=== PATIENT | male | born 1950 | race Caucasian/White ===

== ENCOUNTER 2024-06-14 08:28 | Inpatient (IN) ==
[2024-06-14 08:55] LABS: BASOPHILS # (AUTO) 0.1 10^3/uL (0.0-0.1); BASOPHILS % (AUTO) 0.3 %; EOSINOPHILS % (AUTO) 0.1 %; HCT - HEMATOCRIT 44.7 % (42.0-52.0); LYMPHOCYTES # (AUTO) 1.1 10^3/uL (1.5-3.5); LYMPHOCYTES % (AUTO) 6.9 %; MEAN CORPUSCULAR HEMOGLOBIN 30.9 pg (27.0-31.0); MEAN CORPUSCULAR HGB CONC 33.6 g/dL (32.0-36.0); MEAN CORPUSCULAR VOLUME 92.2 fL (80.0-94.0); MEAN PLATELET VOLUME 10.7 fL (7.4-11.4); MONOCYTES % (AUTO) 6.5 %; NEUTROPHILS # (AUTO) 13.6 10^3/uL (1.5-6.6); NEUTROPHILS % (AUTO) 85.7 %; PLT - PLATELET COUNT 244 10^3/uL (130-450); RED BLOOD COUNT 4.85 10^6/uL (4.70-6.10); RED CELL DISTRIBUTION WIDTH 13.4 % (12.0-15.0); WHITE BLOOD COUNT 15.8 x10^3/uL (4.8-10.8)
[2024-06-14] MEDS: SODIUM CHLORIDE 0.9% 1,000 ML IV STA (09:03)
--- NOTE | 2024-06-14 09:06 | ED Physician Documentation ---
PD HPI ABD PAIN Stated complaint Stated Complaint: L RUQ PX Chief complaint Chief Complaint: Abd Pain History obtained from History obtained from: Patient and EMS Additional information Additional information: The patient comes to the emergency department via EMS for chief complaint of upper abdominal pain, vomiting all night, and no colostomy output. The patient states that he had a colectomy done in February after a perforated diverticulum and that he has had bowel obstruction previously. He states the pain is doing a little better, but he still feels nauseated. No fevers or chills. He states he has not had any stool or flatus into his bag. 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 Meds/Allgy Allergies Allergies Allergy/AdvReac Type Severity Reaction Status Date / Time No Known Drug Allergies Allergy Verified 06/14/24 08:38 [facility] Social History Social History Relationship: Do you feel safe in your home environment?: Yes Suffered physical, verbal, emotional, or financial abuse?: No Exam Constitutional normal general appearance and no apparent distress HENMT normocephalic, head/scalp atraumatic, external nose normal and oral mucous membranes normal Eyes EOMs intact bilaterally Neck/C-Spine visual inspection normal and supple Respiratory breath sounds equal bilaterally, normal respiratory effort and clear to auscultation bilaterally Cardiovascular normal heart rate noted, regular rhythm noted and no edema Gastrointestinal abdomen normal to inspection, abdomen soft to palpation and nondistended Mild diffuse tenderness, no rebound or guarding. Colostomy bag empty. Genitourinary no CVA tenderness Extremities normal to inspection Neurology Alert, grossly intact Psychiatry mental status grossly normal Skin skin color normal Results Vitals Vitals: Vital Signs - 24 hr 06/14/24 08:34 Temperature 36.2 C L Temperature Source Temporal Artery Scan Pulse Rate 95 Respiratory Rate 20 Blood Pressure 100/72 O2 Saturation 96 O2 Source Room air Pain Intensity 5 Oxygen O2 Source Room air Labs Labs: Laboratory Tests 06/14/24 08:45 WBC 15.8 H RBC 4.85 Hgb 15.0 Hct 44.7 MCV 92.2 MCH 30.9 MCHC 33.6 RDW 13.4 Plt Count 244 MPV 10.7 Neut # (Auto) 13.6 H Lymph # (Auto) 1.1 L Hancock # (Auto) 1.0 Eos # (Auto) 0.0 Baso # (Auto) 0.1 Absolute Nucleated RBC 0.00 Nucleated RBC % 0.0 Sodium 138 Potassium 4.1 Chloride 102 Carbon Dioxide 28 Anion Gap 8.0 BUN 20 Creatinine 0.9 Estimated GFR (MDRD) 82 L Glucose 147 H Calcium 9.9 Total Bilirubin 0.8 AST 20 ALT 13 Alkaline Phosphatase 70 Total Protein 7.4 Albumin 4.3 Globulin 3.1 Albumin/Globulin Ratio 1.4 Lipase 16 PD Medical Decision Making ED course Complexity details: reviewed old records, reviewed results, re-evaluated patient, considered differential and d/w patient ED course: Patient was worked's and ultimately CT scan of the abdomen and pelvis. He declined analgesia in the emergency department was given IV fluids and Zofran. The patient's laboratory studies revealed a white count of 15.8. Glucose was moderately elevated at 147. The remainder of blood work was unremarkable. His CT scan showed herniation of a loop of small bowel into the abdominal wall defect adjacent to the colostomy and a resultant small bowel obstruction. I discussed the findings with the patient and that he has quite a bit of gastric contents visible on CT. He would most likely find relief with gastric decompression. I discussed the case with Dr. Edmond of surgery who his come to evaluate the patient. She for now is recommending decompression with NG tube and conservative management initially to see if the obstruction resolves on its own. The patient has a history of A-fib and hypertension, and will be admitted to medicine. I have discussed the case with Dr. De La Vega and he has accepted the patient for admission. Patient is agreeable to the plan. Discharge Plan Discharge Patient Disposition: [facility] DC/Xfer Condition: Serious Clinical Impression: Small bowel obstruction, Colostomy present Print Language: Sami
[2024-06-14 09:07] LABS: ALBUMIN 4.3 g/dL (3.2-5.5); ALBUMIN/GLOBULIN RATIO 1.4 (1.0-2.2); BILIRUBIN,TOTAL 0.8 mg/dL (0.2-1.0); CALCIUM 9.9 mg/dL (8.5-10.3); CREATININE 0.9 mg/dL (0.6-1.3); POTASSIUM 4.1 mmol/L (3.5-4.5); TOTAL PROTEIN 7.4 g/dL (6.4-8.9)
[2024-06-14] MEDS ORDERED: iohexoL-300 100 ML VIAL ONE (09:10)
[2024-06-14] MEDS: ONDANSETRON 4 MG/2 ML VIAL IVP STA (09:20)
[2024-06-14] MEDS: iohexoL-300 100 ML VIAL IVP ONE (09:45)
--- NOTE | 2024-06-14 09:54 | CT Report ---
PROCEDURE: CT Abdomen/Pelvis W INDICATIONS: vomiting, abd pn, no colostomy output CONTRAST: 100ml omni 300 TECHNIQUE: After the administration of intravenous contrast, a CT scan of the abdomen and pelvis was performed. Images were recorded and evaluated at appropriate window settings. Reformats: coronal and sagittal. F or radiation dose reduction, the following was used: automated exposure control, adjustment of mA and /or kV according to patient size. COMPARISON: None. FINDINGS: Image quality: Diagnostic. Lower chest: Unremarkable. Liver: No solid mass. Gallbladder: No radiopaque stones or wall thickening. Biliary tree: No intrahepatic or extrahepatic dilation, accounting for age. Spleen: No splenomegaly. Pancreas: No pancreatic ductal dilation. Adrenals: No adrenal nodule. Kidneys and ureters: No hydronephrosis. No renal cystic lesion which requires follow up. No solid mas s. Stomach, bowel and peritoneum: There is remote sigmoid colectomy with left lower quadrant colostomy. There is a herniated loop of small bowel within the abdominal wall defect which results in a small jose wel obstruction. There is a degree of inflammatory change in the subjacent fat within the tissues kisha rounding the herniated loop. Lymph nodes: No central or retroperitoneal adenopathy. Vessels: No infrarenal aortic aneurysm. Patent portal vein. PELVIS Reproductive organs: Unremarkable. Bladder: No abnormal wall thickening, accounting for underdistention. Pelvic lymph nodes: No pelvic adenopathy by size criteria. Bones: No aggressive osseous abnormality. Other: Left inguinal hernia containing nonobstructed small bowel. There is minimal fluid within the h ernia sac.. IMPRESSION: 1. A herniated small bowel loop within the left lower quadrant colostomy results in small bowel obstr uction. 2. There is also a left inguinal hernia which contains nonobstructed small bowel. There is a small am ount of fluid present within the hernia sac. Comment: The small bowel obstruction appears to be related to the herniated loop within the colostomy abdominal wall defect, and not at the level of the left inguinal hernia. However, evaluation of both sites of herniation is suggested. Reviewed by: Jarod Handy MD on 06/14/2024 9:53 AM PST Approved by: Jarod Handy MD on 06/14/2024 9:53 AM PST Station ID: [id number]
[2024-06-14] MEDS: PROMETHAZINE INJ 25 MG in SODIUM CHLORIDE 0.9% 50 ML IV STA (10:52)
--- NOTE | 2024-06-14 11:12 | CONSULTATION NOTE ---
Referring Provider Name of Referring Provider:: ED (Teto) Consult Date: 06/14/24 Chief Complaint Chief Complaint Chief Complaint: "I've been better. I think I have an obstruction." History of Present Illness Admitted From Admitted From:: ED, brought in by EMS History Obtained From Records Reviewed: yes (limited records available) History obtained from: patient, ED provider, chart Exam Limitations: none History of Present Illness HPI Comment/Other: This is a 74-year-old gentleman who presents with a 16-hour history of acute onset diffuse abdominal discomfort associated with nausea and 12 episodes of emesis. He describes his emesis as bilious and nonbloody. He has not been able to tolerate any p.o. He has noted significant decrease in his ostomy output since onset of symptoms. He has had a prior bowel obstruction a year and a half ago. He also had perforated diverticulitis last February, and for this had an exploratory laparotomy and Tejada's procedure. His last colonoscopy was in the spring 2023 and he does have a history of numerous colon polyps. Also of note, the patient has chronic atrial fibrillation for which she has had several prior ablations and is followed by Dr. Sen of cardiology at [facility] in [place]. He is currently on metoprolol and aspirin. He is not on any other blood thinners. At the time of my visit, the patient continues to be quite nauseated and feels that his pain is somewhat improved. PFSH Active Problems All Active Problems (Updated 06/14/24 @ 11:17 by Naa Edmond MD) Leukocytosis (Acute) Small bowel obstruction (Acute) Atrial fibrillation with controlled ventricular response (Chronic) Medical History Medical History (Updated 06/14/24 @ 11:17 by Naa Edmond MD) Hypertension History of diverticulitis History of small bowel obstruction Surgical History Surgical History (Updated 06/14/24 @ 11:30 by Naa Edmond MD) History of colonoscopy with polypectomy most recent spring 2023, patient reports 40 polyps History of appendectomy Tibia fracture History of cardiac ablation for atrial fibrillation History of colostomy 02/2024 For perforated diverticulitis Social History Social History (Updated 06/14/24 @ 11:17 by Naa Edmond MD) Living arrangement: At home Living Condition: With spouse/s.o. Relationship: Level: Independent Do you feel safe in your home environment?: Yes Suffered physical, verbal, emotional, or financial abuse?: No Occupation: orthopedic surgeon Retired: Yes Meds/Allgy Allergies Allergies Allergy/AdvReac Type Severity Reaction Status Date / Time No Known Drug Allergies Allergy Verified 06/14/24 08:38 Results Lab Results Lab results reviewed: Yes 06/14/24 08:45 06/14/24 08:45 Other Lab Results: Lab Results x24hrs 06/14/24 Range/Units 08:45 WBC 15.8 H (4.8-10.8) x10^3/uL RBC 4.85 (4.70-6.10) 10^6/uL Hgb 15.0 (14.0-18.0) g/dL Hct 44.7 (42.0-52.0) % MCV 92.2 (80.0-94.0) fL MCH 30.9 (27.0-31.0) pg MCHC 33.6 (32.0-36.0) g/dL RDW 13.4 (12.0-15.0) % Plt Count 244 (130-450) 10^3/uL MPV 10.7 (7.4-11.4) fL Neut # (Auto) 13.6 H (1.5-6.6) 10^3/uL Lymph # (Auto) 1.1 L (1.5-3.5) 10^3/uL Shelby # (Auto) 1.0 (0.0-1.0) 10^3/uL Eos # (Auto) 0.0 (0.0-0.7) 10^3/uL Baso # (Auto) 0.1 (0.0-0.1) 10^3/uL Absolute Nucleated RBC 0.00 x10^3/uL Nucleated RBC % 0.0 /100WBC Sodium 138 (135-145) mmol/L Potassium 4.1 (3.5-4.5) mmol/L Chloride 102 (101-111) mmol/L Carbon Dioxide 28 (21-32) mmol/L Anion Gap 8.0 (6-13) BUN 20 (6-20) mg/dL Creatinine 0.9 (0.6-1.3) mg/dL Estimated GFR (MDRD) 82 L (>89) Glucose 147 H (74-104) mg/dL Calcium 9.9 (8.5-10.3) mg/dL Total Bilirubin 0.8 (0.2-1.0) mg/dL AST 20 (10-42) IU/L ALT 13 (10-60) IU/L Alkaline Phosphatase 70 (42-121) IU/L Total Protein 7.4 (6.4-8.9) g/dL Albumin 4.3 (3.2-5.5) g/dL Globulin 3.1 (2.1-4.2) g/dL Albumin/Globulin Ratio 1.4 (1.0-2.2) Lipase 16 (11-82) U/L Diagnostic Imaging Results Diagnostic Imaging Results: positive Final report reviewed Diagnostic Imaging Results Comments: I personally interpreted the images and reviewed the report from the CT scan done today. Moderate distension of the stomach with fluid and air, moderately dilated proximal small bowel. CT report states there is a loop of small bowel in the ostomy but I do not appreciate this on my review of the images. I do see a small seroma in the stoma, otherwise no significant free fluid. No free air. Conclusion and Plan Consultation Note Consultation Note: 74 y/o M with: 1. small bowel obstruction - adhesions vs parastomal hernia (I do not appreciate a hernia on exam or on the CT) - I discussed these findings with the patient and we agreed to trial conservative management with an NG tube today/tonight. If his ostomy output increases, we will trial clamping the tube and PO, if not, plan for small bowel follow through with gastrograffin tomorrow. - He has no peritoneal signs, no need for emergent surgical intervention at this time. - If the patient has a persistent obstruction and we are more seriously considering surgery, the patient and I agree that involving a colorectal surgeon at that time would be mcacnn to see if they would entertain colostomy takedown, though he is less than six months from his initial surgery. - IV pain, nausea meds, and IVF ordered. 2. leukocytosis - likely stress response - no fevers - no need for antibiotics at this time 3. atrial fibrillation, htn - as per primary team - recommend changing metoprolol to IV while patient is NPO Thank you for consulting me in the care of this patient! Surgery will continue to follow slowly. Review of Systems Status of ROS: 10 or more systems reviewed and unremarkable except as noted in history and below Exam Exam GEN: No acute distress, appears stated age, alert and oriented HEENT: NCAT, dry mucous membranes, EOMI NEURO: CN II-XII grossly intact, no obvious focal deficits CV: irregularly irregular rhythm, mildly tachycardic (90s-100s) PULM: non labored, on RA ABD: soft, mildly distended, mild and diffuse tenderness to palpation, no rebound or guarding, ostomy pink with stool in bag (patient states no output since onset of symptoms) CIRCULATORY: no clubbing, cyanosis, or edema SKIN: no lesions appreciated LYMPH: no obvious lymphadenopathy MSK: 4/4 strength in all extremities PSYCH: Affect is appropriate
[2024-06-14] MEDS ORDERED: METOPROLOL 5 MG/5 ML VIAL IVP PRN (12:23)
[2024-06-14] MEDS: LACTATED RINGERS 1,000 ML IV SCH (12:24)
--- NOTE | 2024-06-14 12:24 | HISTORY & PHYSICAL EXAMINATION ---
Chief Complaint Chief Complaint Chief Complaint: vomiting History of Present Illness Admitted From Admitted From:: Emergency Department History Obtained From History obtained from: Patient History of Present Illness HPI Comment/Other: Mr. Bray is a 74-year-old male with history of perforated diverticulitis and colostomy placement in February 2024. He presents today with vomiting, abdominal distension, and abdominal discomfort that started about 8 pm last night. He reports 12 episodes of emesis since last night, described as non-bloody and bilious. He has colostomy in place since surgery about 3 months ago at [facility], this is his first complication. He denies bloody stool, hemetemesis, chest pain, shortness of breath. His last dose of metoprolol was taken last night, he believes he was able to keep the metoprolol down for more than 30 minutes before vomiting again. His home medications include low-dose Aspirin daily and 75mg Metoprolol twice daily. His chronic conditions include atrial fibrillation, for which he has had several prior ablations and is followed by Dr. Sen of cardiology at [facility] in [place]. His PCP is Dr. Zurita at the [facility] in [place], [place]. He denies tobacco history, frequent alcohol consumption ("two beers a year"), or illicit drug use. He lives at home with his . He is a retired Orthopedic surgeon. His son Hector Bray is a psychiatrist in [place], [place]. Code status: Full code. He would like his son Hector to be the person to make decisions if he becomes unable to do so. Meds/Allgy Home Medications Ambulatory Orders Medication Instructions Recorded Confirmed aspirin 81 mg tablet,delayed 81 mg PO DAILY 06/14/24 06/14/24 release lisinopril 5 mg tablet 5 mg PO DAILY 06/14/24 06/14/24 metoprolol tartrate 50 mg tablet 75 mg PO BID 06/14/24 06/14/24 (Lopressor) multivitamin 1 tab PO DAILY 06/14/24 06/14/24 omega-3 fatty acids-fish oil 360 1 cap PO DAILY 06/14/24 06/14/24 mg-1,200 mg capsule (Fish Oil) Allergies Allergies Allergy/AdvReac Type Severity Reaction Status Date / Time No Known Drug Allergies Allergy Verified 06/14/24 08:38 [facility] Active Problems All Active Problems (Updated 06/14/24 @ 13:07 by Senait Lal) Sepsis (Acute) Leukocytosis (Acute) Small bowel obstruction (Acute) Atrial fibrillation with controlled ventricular response (Chronic) Medical History Medical History (Updated 06/14/24 @ 13:07 by Senait Lal) Hypertension History of diverticulitis History of small bowel obstruction Surgical History Surgical History (Updated 06/14/24 @ 11:30 by Naa Edmond MD) History of colonoscopy with polypectomy most recent spring 2023, patient reports 40 polyps History of appendectomy Tibia fracture History of cardiac ablation for atrial fibrillation History of colostomy 02/2024 For perforated diverticulitis Social History Social History (Updated 06/14/24 @ 11:17 by Naa Edmond MD) Smoking Status: Former smoker If you are a former smoker, when did you quit? (Date/Year): 1960 Number of Years Smoked: 2 Do you dip or chew tobacco?: No Do you vape?: No Living arrangement: At home Living Condition: With spouse/s.o. Relationship: Level: Independent Do you feel safe in your home environment?: Yes Suffered physical, verbal, emotional, or financial abuse?: No Substance Use: denies use Occupation: orthopedic surgeon Retired: Yes POLST Patient has POLST: No POLST Status: Full Code Review of Systems Status of ROS: 10 or more systems reviewed and unremarkable except as noted in history and below Gastrointestinal Reports: Abdominal pain, Abdominal distention, Nausea and Vomiting Prior Level of Functionality: Fully functional with no need for assistance. Exam Exam Patient is laying supine on ED bed, visibly uncomfortable without acute distress. NG tube is in place and is draining fluids. Constitutional normal general appearance and no apparent distress (visibly uncomfortable without acute distress) HENMT normocephalic Eyes PERRL Neck/C-Spine visual inspection normal and trachea midline Extremities normal to inspection Neurology farmworker vegetable II-XII intact and no movement abnormality noted Skin skin color normal Sepsis Event Note (H) Evaluation Current Stage of Sepsis: Ruled out (Meets clinical criteria below for sepsis, however clinical picture is more cash application representative of SIRS - systemic inflammatory response. See Assessment/Plan under SBO) Possible source of Sepsis: positive GI tract/intra-abdominal Sepsis Criteria Sepsis Criteria: Recorded Heart Rate greater than 90 bpm, WBC count greater than 10% bands and WBC count greater than 12,000 or less than 4000 Conclusion/Plan Problem List (1) Small bowel obstruction: Plan: NG tube is in place for gastric decompression. Surgeon is following closely to determine if surgical resection/repair is necessary. Will consider gastrografin tomorrow if obstruction has not cleared. Surgeon may contact , who follows this patient after colostomy procedure, to determine if any needed intervention should be done here at [facility] or at . - 1L Lactated Ringers IV This patient meets clinical criteria below for sepsis, however total clinical picture is more cash application representative of SIRS - systemic inflammatory response. - Leukocytosis to 15.8 with Bandemia (Neutrophils at 13.6) - likely secondary to SBO, vomiting, dehydration - Tachycardia with max documented at 111 bpm, likely secondary to vomiting and dehydration. Improved after administration of fluids (2) Atrial fibrillation with controlled ventricular response: Plan: - Hold 81mg Aspirin due to abdominal pain and potential procedure. - IV 5mg metoprolol q6h with additional IV 5mg PRN for heart rate sustained above 120 (3) Leukocytosis: Plan: WBC elevated to 15.8. Suspect reactive leukocytosis due to excessive vomiting, dehydration, and SBO - Will continue to monitor for changes with fluid rehydration. (4) Hypertension: Plan: Chronic condition managed with 5 mg Lisinopril. - IV Hydralazine 10 mg q6h PRN for systolic blood pressure >160 Lab Results Lab results reviewed: Yes 06/14/24 08:45 06/14/24 08:45 Diagnostic Imaging Results Diagnostic Imaging Results: positive Final report reviewed Diagnostic Imaging Results Comments: CT Abdomen/Pelvis: 1. A herniated small bowel loop within the left lower quadrant colostomy results in small bowel obstruction. 2. There is also a left inguinal hernia which contains nonobstructed small bowel. There is a small amount of fluid present within the hernia sac. Comment: The small bowel obstruction appears to be related to the herniated loop within the colostomy abdominal wall defect, and not at the level of the left inguinal hernia. However, evaluation of both sites of herniation is suggested. Core Measures Anticipated LOS I expect patient to be DC'd or transferred within 96 hours.: Yes DVT/VTE - Prophylaxis VTE/DVT Device ordered at admit?: Yes VTE/DVT Prophylaxis med ordered at admit?: No
[2024-06-14] MEDS: LACTATED RINGERS 1,000 ML IV ONE (12:47)
[2024-06-14] MEDS: ERYTHROMYCIN OPHTH OINT 1 GM TUBE LEFTEYE STA (12:49)
[2024-06-14] MEDS: METOPROLOL 5 MG/5 ML VIAL IVP SCH (12:51)
[2024-06-14] MEDS ORDERED: COD LIVER OIL/ZINC OXIDE 113 GM TUBE TOP PRN (13:55)
--- NOTE | 2024-06-14 14:03 | XRAY Report ---
PROCEDURE: XR Chest for Line Placement INDICATIONS: ngt placement TECHNIQUE: One view of the chest was acquired. COMPARISON: CT abdomen and pelvis earlier today. FINDINGS: Surgical changes and devices: Enteric tube in the stomach. Lungs and pleura: No pleural effusions or pneumothorax. No consolidation. Mediastinum: Mediastinal contours appear normal. Heart size is normal. Bones and chest wall: No suspicious bony lesions. Overlying soft tissues appear unremarkable. Promi nent loops of bowel in the upper abdomen. IMPRESSION: Enteric tube in the stomach. Reviewed by: Jt Young MD on 06/14/2024 2:02 PM [facility] Approved by: Jt Young MD on 06/14/2024 2:02 PM [facility] Station ID: [id number]
--- NOTE | 2024-06-14 15:27 | PHARMACY PROGRESS NOTE ---
Best Possible Medication History Admit Date and Time: 06/14/24 [id number] Home Medications Medication Instructions Recorded Confirmed Type aspirin 81 mg tablet,delayed 81 mg PO DAILY 06/14/24 06/14/24 History release lisinopril 5 mg tablet 5 mg PO DAILY 06/14/24 06/14/24 History metoprolol tartrate 50 mg tablet 75 mg PO BID 06/14/24 06/14/24 History (Lopressor) multivitamin 1 tab PO DAILY 06/14/24 06/14/24 History omega-3 fatty acids-fish oil 360 1 cap PO DAILY 06/14/24 06/14/24 History mg-1,200 mg capsule (Fish Oil) Processed by: Pharmacy Medications reviewed in ED?: No Medication History completed: Yes Patient Interview: Pt interview ONLY source [facility] Statement: As the person ultimately responsible for medication therapy, providers are able to order a medication from an existing home medication list in [facility] via the "Reconcile Routine" prior to Confirmation of that medication by client support consultant. Such practice is discouraged except when the physician, in their clinical judgment, deems that a medical need exists for a medication without regard to previous use.
[2024-06-14] MEDS: ONDANSETRON 4 MG/2 ML VIAL IVP PRN (16:05)
[2024-06-14] MEDS ORDERED: PHENOL THROAT SPRAY 177 ML MM PRN (16:37)
[2024-06-14] MEDS ORDERED: HYDROmorphone 0.5 MG/0.5 ML SYRINGE IVP PRN (18:27)
[2024-06-14] MEDS: PROCHLORPERAZINE 10 MG/2 ML VIAL IVP PRN (19:05)
[2024-06-14] MEDS: HEPARIN 5,000 UNIT/ML VIAL SUBQ SCH (20:10)
[2024-06-15 05:56] LABS: BASOPHILS # (AUTO) 0.1 10^3/uL (0.0-0.1); BASOPHILS % (AUTO) 0.6 %; EOSINOPHILS % (AUTO) 0.3 %; HCT - HEMATOCRIT 38.4 % (42.0-52.0); HGB - HEMOGLOBIN 13.1 g/dL (14.0-18.0); LYMPHOCYTES # (AUTO) 1.4 10^3/uL (1.5-3.5); LYMPHOCYTES % (AUTO) 16.6 %; MEAN CORPUSCULAR HEMOGLOBIN 31.3 pg (27.0-31.0); MEAN CORPUSCULAR HGB CONC 34.1 g/dL (32.0-36.0); MEAN CORPUSCULAR VOLUME 91.9 fL (80.0-94.0); MEAN PLATELET VOLUME 10.8 fL (7.4-11.4); MONOCYTES # (AUTO) 1.2 10^3/uL (0.0-1.0); MONOCYTES % (AUTO) 13.4 %; NEUTROPHILS % (AUTO) 68.9 %; PLT - PLATELET COUNT 218 10^3/uL (130-450); RED BLOOD COUNT 4.18 10^6/uL (4.70-6.10); RED CELL DISTRIBUTION WIDTH 13.6 % (12.0-15.0); WHITE BLOOD COUNT 8.7 x10^3/uL (4.8-10.8)
[2024-06-15 06:09] LABS: CALCIUM 8.5 mg/dL (8.5-10.3); CREATININE 0.9 mg/dL (0.6-1.3); POTASSIUM 3.8 mmol/L (3.5-4.5)
--- NOTE | 2024-06-15 07:18 | PROVIDER PROGRESS NOTE ---
Subjective General Admit Date: 06/14/24 Other Other Information/Narrative: Patient did not sleep well last night. Some trouble with NG, now working well. When it was not working the patient did have another episode of emesis last night. No acute events. Some gas in ostomy bag this morning. Review of Systems Status of ROS: 10 or more systems reviewed and unremarkable except as noted in history and below Exam Exam GEN: No acute distress, alert and oriented HEENT: NG in place with 1800mL out since placement, bilious CV: irregularly irregular rhythm, mildly tachycardic (90s-100s) PULM: non labored, on RA ABD: soft, not distended, no significant tenderness to palpation, no rebound or guarding, ostomy pink with gas and stool in bag (bag has not been emptied or changed since presentation) CIRCULATORY: no clubbing, cyanosis, or edema Impression/Plan Problem List (1) Small bowel obstruction: (2) Atrial fibrillation with controlled ventricular response: (3) Leukocytosis: Plan: resolved (4) Hypertension: Problem List Comment Problem List: 74 y/o M with: 1. small bowel obstruction - adhesions vs parastomal hernia (I do not appreciate a hernia on exam or on the CT) - trialing conservative management. NG working at this time and patient does have some new air in ostomy. Plan for SBFT with gastrograffin today (ordered). - He has no peritoneal signs, no need for emergent surgical intervention at this time. - If the patient has a persistent obstruction and we are more seriously considering surgery, the patient and I agree that involving a colorectal surgeon at that time would be mccann to see if they would entertain colostomy takedown, though he is less than six months from his initial surgery. - IV pain, nausea meds, and IVF ordered. 2. leukocytosis - likely stress response, now resolved 3. atrial fibrillation, htn - as per primary team - recommend changing metoprolol to IV while patient is NPO Thank you for consulting me in the care of this patient! Surgery will continue to follow closely.
--- NOTE | 2024-06-15 07:54 | PROVIDER PROGRESS NOTE ---
Subjective Prog Note Date Prog Note Date: 06/15/24 Prog Note Time: 08:15 Subjective Pt reports feeling: Improved Subjective: Patient is awake and alert, laying supine in bed. He is in mild discomfort but reports feeling improved from yesterday. SBFT started, XR to follow up with repeat images in 15 minutes. Denies chest chain, shortness of breath, confusion, pain. Current Medications Current Medications Current Medications: Current Medications Generic Name Dose Route Start Last Admin Trade Name Freq PRN Reason Stop Dose Admin Heparin Sodium (Porcine) 5,000 unit 06/14/24 21:00 06/14/24 20:10 Heparin 5,000 Unit/Ml Vial SUBQ 5,000 unit BID SANDRA Administration Hydromorphone HCl 0.5 mg 06/14/24 18:27 Hydromorphone 0.5 Mg/0.5 Ml Syringe IVP Q2H PRN Severe Pain (Level 7-10) Lactated Ringer's 1,000 mls @ 125 mls/hr 06/14/24 12:00 06/15/24 06:45 Lr IV 125 mls/hr .Q8H SANDRA Administration Acetaminophen 1,000 mg in 100 mls @ 400 mls/hr 06/14/24 14:42 Acetaminophen IV Q6HR PRN Moderate Pain (Level 4-6) Metoprolol Tartrate 5 mg 06/14/24 13:00 06/15/24 06:24 Metoprolol 5 Mg/5 Ml Vial IVP 5 mg Q6H SANDRA Administration Metoprolol Tartrate 5 mg 06/14/24 12:23 Metoprolol 5 Mg/5 Ml Vial IVP Q6H PRN Tachycardia Ondansetron HCl 4 mg 06/14/24 14:42 06/15/24 00:20 Ondansetron 4 Mg/2 Ml Vial IVP 4 mg Q4HR PRN Administration Nausea / Vomiting Phenol/Menthol 2 sprays 06/14/24 16:37 Phenol Throat [place] 177 Ml MM Q4HR PRN Mouth Sore Pain Prochlorperazine Edisylate 10 mg 06/14/24 18:27 06/15/24 03:15 Prochlorperazine 10 Mg/2 Ml Vial IVP 10 mg Q6HR PRN Administration Nausea / Vomiting Zinc Oxide 113 gm 06/14/24 13:55 Cod Liver Oil/Zinc Oxide 113 Gm Tube TOP PRN PRN Skin Care Objective Vital Signs/Intake & Output Reviewed Vital Signs: Yes Vital Signs: Vital Signs x48h Temp Pulse Pulse Resp BP BP Pulse Ox 06/15/24 06:24 108 H 127/83 06/15/24 04:19 37.2 C 104 H 18 149/91 H 95 06/15/24 00:13 37.8 C 103 H 18 145/90 H 93 06/15/24 00:10 94 145/90 H Intake & Output: Intake & Output 06/12/24 06/13/24 06/14/24 06/15/24 23:59 23:59 23:59 23:59 Intake Total 3277 / 3277 1420 / 1420 Output Total 2100 / 2100 900 / 900 Balance 1177 / 1177 520 / 520 Weight (kg) 104 kg Objective General Appearance: positive No acute distress and Alert Eyes Bilateral: positive Normal inspection and PERRL ENT: positive ENT inspection nml Neck: positive Nml inspection Respiratory: positive Chest non-tender, No respiratory distress and Breath sounds nml; negative Wheezes, Rales or Rhonchi Cardiovascular: positive No murmur and Irregularly irregular Abdomen: positive Tenderness (mild tenderness, improved from yesterday) Skin: positive Color nml Extremities: positive Non-tender and Full ROM Neurologic/Psychiatric: positive Oriented x3, CN's nml (2-12), Motor nml, Sensation nml and Mood/affect nml Lab Results 06/15/24 05:29 06/15/24 05:29 Other Labs: Lab Results x24hrs 06/15/24 06/14/24 Range/Units 05:29 08:45 WBC 8.7 15.8 H (4.8-10.8) x10^3/uL RBC 4.18 L 4.85 (4.70-6.10) 10^6/uL Hgb 13.1 L 15.0 (14.0-18.0) g/dL Hct 38.4 L 44.7 (42.0-52.0) % MCV 91.9 92.2 (80.0-94.0) fL MCH 31.3 H 30.9 (27.0-31.0) pg MCHC 34.1 33.6 (32.0-36.0) g/dL RDW 13.6 13.4 (12.0-15.0) % Plt Count 218 244 (130-450) 10^3/uL MPV 10.8 10.7 (7.4-11.4) fL Neut # (Auto) 6.0 13.6 H (1.5-6.6) 10^3/uL Lymph # (Auto) 1.4 L 1.1 L (1.5-3.5) 10^3/uL [place] # (Auto) 1.2 H 1.0 (0.0-1.0) 10^3/uL Eos # (Auto) 0.0 0.0 (0.0-0.7) 10^3/uL Baso # (Auto) 0.1 0.1 (0.0-0.1) 10^3/uL Absolute Nucleated RBC 0.00 0.00 x10^3/uL Nucleated RBC % 0.0 0.0 /100WBC Sodium 138 138 (135-145) mmol/L Potassium 3.8 4.1 (3.5-4.5) mmol/L Chloride 103 102 (101-111) mmol/L Carbon Dioxide 29 28 (21-32) mmol/L Anion Gap 6.0 8.0 (6-13) BUN 18 20 (6-20) mg/dL Creatinine 0.9 0.9 (0.6-1.3) mg/dL Estimated GFR (MDRD) 82 L 82 L (>89) Glucose 124 H 147 H (74-104) mg/dL Calcium 8.5 9.9 (8.5-10.3) mg/dL Total Bilirubin 0.8 (0.2-1.0) mg/dL AST 20 (10-42) IU/L ALT 13 (10-60) IU/L Alkaline Phosphatase 70 (42-121) IU/L Total Protein 7.4 (6.4-8.9) g/dL Albumin 4.3 (3.2-5.5) g/dL Globulin 3.1 (2.1-4.2) g/dL Albumin/Globulin Ratio 1.4 (1.0-2.2) Lipase 16 (11-82) U/L Diagnostic Imaging Diagnostic Imaging Results: positive Final report reviewed Diagnostic Imaging Comments: Chest XR: Enteric tube in the stomach. ABX Reporting Has patient been on IV antibiotics over the past 48 hours?: No Sepsis Event Note (H) Evaluation Current Stage of Sepsis: Ruled out (Meets clinical criteria below for sepsis, however clinical picture is more telephone claims representative of SIRS - systemic inflammatory response. See Assessment/Plan) Possible source of Sepsis: positive GI tract/intra-abdominal Sepsis Criteria Sepsis Criteria: Recorded Heart Rate greater than 90 bpm Assessment/Plan Problem List (1) Small bowel obstruction: Impression: He is feeling improved today. SBFT started per surgeon with hopes this will show and/or clear the obstruction. NG tube in place. (2) Atrial fibrillation with controlled ventricular response: Impression: Mild tachycardia in 90's and low 100's overnight likely secondary to dehydration and discomfort. Expect this to resolve with fluids and resolution of small bowel obstruction. (3) Leukocytosis: Impression: Leukocytosis and banemia both resolved today at 8.7 and 6.0, respectively, in further support of these lab elevations being due to reactive inflammatory response. (4) Hypertension: Impression: Mild hypertension overnight with SBP in 150's, no need for administration of PRN hydralazine which was prescribed in case of SBP >160. Currently normotensive on IV metoprolol. - Continue IV metoprolol 5mg q6h - Continue PRN IV Hydralazine 10mg q6h if SBP>160
[2024-06-15] MEDS: ACETAMINOPHEN 1,000 MG/100 ML 1,000 MG/100 ML BAG IV PRN (09:36)
[2024-06-15] MEDS: DIATR MEGLU/DIATRIZOATE SODIUM 120 ML BOTTLE PO ONE (10:23)
--- NOTE | 2024-06-15 12:24 | XRAY Report ---
PROCEDURE: XR SBFT Challenge Panel INDICATIONS: OBSTRUCTION COMPARISON: 06/14/2024 CONTRAST: Injected oral contrast FINDINGS AND IMPRESSION: Enteric tube is seen terminating in the stomach. Moderately distended loops of left abdominal small b owel are seen on mattress filler images. Contrast is seen transiting through the small bowel, entering the larg e bowel at 2 hours and 30 minutes. This excludes a complete small bowel obstruction. Reviewed by: Garcia Carmona MD on 06/15/2024 12:23 PM PST Approved by: Garcia Carmona MD on 06/15/2024 12:23 PM PST Station ID: [id number]
--- NOTE | 2024-06-15 19:02 | XRAY Report ---
PROCEDURE: XR Abdomen 1 V INDICATIONS: vomiting TECHNIQUE: One view of the abdomen acquired. COMPARISON: 06/14/2024, 06/15/2024 FINDINGS: Surgical changes and devices: None. Bowel: Stable distended loops of small bowel. Intraluminal contrast within the small and large bowel. Soft tissues: No suspicious abdominal calcifications. Visualized solid organ contours appear normal in size. Bones: No suspicious bony lesions. IMPRESSION: Intraluminal contrast within the small and large bowel. Reviewed by: Guicho Cisse MD on 06/15/2024 7:00 PM PST Approved by: Guicho Cisse MD on 06/15/2024 7:00 PM PST Station ID: [id number]
--- NOTE | 2024-06-15 20:03 | XRAY Report ---
PROCEDURE: XR Post ET Tube 1V CXR INDICATIONS: NGT placement TECHNIQUE: One view of the chest was acquired. COMPARISON: None. FINDINGS: Surgical changes and devices: Gastric tube tip and side-port project over the stomach. Lungs and pleura: No pleural effusions or pneumothorax. No consolidation. Elevated left hemidiaphra gm. Mediastinum: Mediastinal contours appear normal. Heart size is normal. Bones and chest wall: No suspicious bony lesions. Overlying soft tissues appear unremarkable. IMPRESSION: Endotracheal tube not visualized. Recommend repositioning. Gastric tube tip and side-port project over the stomach. Reviewed by: Guicho Cisse MD on 06/15/2024 8:01 PM PST Approved by: Guicho Cisse MD on 06/15/2024 8:01 PM PST Station ID: [id number]
[2024-06-15] MEDS: LACTATED RINGERS 1,000 ML IV SCH (20:09)
[2024-06-15] MEDS: LIDOCAINE 2% URO-JET 5 ML SYRINGE UR ONE (22:56)
[2024-06-16 06:01] LABS: BASOPHILS % (AUTO) 0.5 %; EOSINOPHILS # (AUTO) 0.1 10^3/uL (0.0-0.7); EOSINOPHILS % (AUTO) 1.1 %; HCT - HEMATOCRIT 40.3 % (42.0-52.0); HGB - HEMOGLOBIN 13.2 g/dL (14.0-18.0); LYMPHOCYTES # (AUTO) 2.4 10^3/uL (1.5-3.5); LYMPHOCYTES % (AUTO) 26.8 %; MEAN CORPUSCULAR HEMOGLOBIN 30.8 pg (27.0-31.0); MEAN CORPUSCULAR HGB CONC 32.8 g/dL (32.0-36.0); MEAN CORPUSCULAR VOLUME 93.9 fL (80.0-94.0); MEAN PLATELET VOLUME 10.9 fL (7.4-11.4); MONOCYTES # (AUTO) 0.9 10^3/uL (0.0-1.0); MONOCYTES % (AUTO) 9.7 %; NEUTROPHILS # (AUTO) 5.4 10^3/uL (1.5-6.6); NEUTROPHILS % (AUTO) 61.6 %; PLT - PLATELET COUNT 199 10^3/uL (130-450); RED BLOOD COUNT 4.29 10^6/uL (4.70-6.10); RED CELL DISTRIBUTION WIDTH 13.4 % (12.0-15.0); WHITE BLOOD COUNT 8.8 x10^3/uL (4.8-10.8)
[2024-06-16 06:15] LABS: CALCIUM 8.5 mg/dL (8.5-10.3); CREATININE 0.9 mg/dL (0.6-1.3); POTASSIUM 3.5 mmol/L (3.5-4.5)
--- NOTE | 2024-06-16 08:41 | PROVIDER PROGRESS NOTE ---
Subjective General Admit Date: 06/15/24 Review of Systems Status of ROS: 10 or more systems reviewed and unremarkable except as noted in history and below Exam Exam GEN: No acute distress, alert and oriented HEENT: NG in place with 1650mL out recorded since NG replaced. Bilious, non bloody. CV: irregularly irregular rhythm, mildly tachycardic (90s-100s) PULM: non labored, on RA ABD: soft, not distended, no significant tenderness to palpation, no rebound or guarding, ostomy pink with gas and stool in bag (bag has not been emptied or changed since presentation) CIRCULATORY: no clubbing, cyanosis, or edema Impression/Plan Problem List (1) Small bowel obstruction: Plan: - adhesions vs parastomal hernia (I do not appreciate a hernia on exam or on the CT) - SBFT showed contrast in colon at 2 hours yesterday, but patient unable to tolerate PO - NG replaced, at least 1650mL out since placement. He has had output from his ostomy last night and this morning. Plan to clamp NG now, trial clears slowly and SLIV. - He has no peritoneal signs, no need for emergent surgical intervention at this time. - If the patient has a persistent obstruction and we are more seriously considering surgery, the patient and I agree that involving a colorectal surgeon at that time would be mccann to see if they would entertain colostomy takedown, though he is less than six months from his initial surgery. I spoke with Dr. Ronal Green at [facility] in [place] last night. If he ultimately fails conservative management, she would recommend transfer for surgery to relieve obstruction and take down his colostomy. - IV pain, nausea meds, and IVF ordered. (2) Atrial fibrillation with controlled ventricular response: Plan: - as per primary team - only on ASA at baseline (not anticoagulated) - recommend changing metoprolol to IV while patient is NPO (3) Leukocytosis: Plan: resolved (4) Hypertension: Plan: stable, continue to monitor Plan Possible transfer to [facility] tomorrow if obstruction not resolving with conservative management.
--- NOTE | 2024-06-16 09:27 | PROVIDER PROGRESS NOTE ---
Subjective Prog Note Date Prog Note Date: 06/16/24 Prog Note Time: 09:23 Subjective Pt reports feeling: Improved Subjective: Patient is awake, laying in bed on his cellphone. He reports feeling better today and hoping he can get the NG tube out quickly. He reports 350cc in his colostomy bag and there is 400cc in the suction canister. He denies chest pain, abdominal distension, abdominal cramping, shortness of breath, or any concerns. Current Medications Current Medications Current Medications: Current Medications Generic Name Dose Route Start Last Admin Trade Name Freq PRN Reason Stop Dose Admin Heparin Sodium (Porcine) 5,000 unit 06/14/24 21:00 06/15/24 20:08 Heparin 5,000 Unit/Ml Vial SUBQ 5,000 unit BID SANDRA Administration Hydromorphone HCl 0.5 mg 06/14/24 18:27 Hydromorphone 0.5 Mg/0.5 Ml Syringe IVP Q2H PRN Severe Pain (Level 7-10) Acetaminophen 1,000 mg in 100 mls @ 400 mls/hr 06/14/24 14:42 06/15/24 11:38 Acetaminophen IV Infused Q6HR PRN Infusion Moderate Pain (Level 4-6) Lactated Ringer's 1,000 mls @ 100 mls/hr 06/15/24 19:00 06/16/24 02:29 Lr IV 06/16/24 14:59 100 mls/hr .Q10H SANDRA Administration Metoprolol Tartrate 5 mg 06/14/24 13:00 06/16/24 06:24 Metoprolol 5 Mg/5 Ml Vial IVP 5 mg Q6H SANDRA Administration Metoprolol Tartrate 5 mg 06/14/24 12:23 Metoprolol 5 Mg/5 Ml Vial IVP Q6H PRN Tachycardia Ondansetron HCl 4 mg 06/14/24 14:42 06/15/24 16:22 Ondansetron 4 Mg/2 Ml Vial IVP 4 mg Q4HR PRN Administration Nausea / Vomiting Phenol/Menthol 2 sprays 06/14/24 16:37 Phenol Throat [place] 177 Ml MM Q4HR PRN Mouth Sore Pain Prochlorperazine Edisylate 10 mg 06/14/24 18:27 06/15/24 17:09 Prochlorperazine 10 Mg/2 Ml Vial IVP 10 mg Q6HR PRN Administration Nausea / Vomiting Zinc Oxide 113 gm 06/14/24 13:55 Cod Liver Oil/Zinc Oxide 113 Gm Tube TOP PRN PRN Skin Care Objective Vital Signs/Intake & Output Reviewed Vital Signs: Yes Vital Signs: Vital Signs x48h Temp Pulse Pulse Resp BP BP Pulse Ox 06/16/24 09:16 36.4 C L 97 20 128/94 H 92 06/16/24 06:24 97 142/89 H Intake & Output: Intake & Output 06/13/24 06/14/24 06/15/24 06/16/24 23:59 23:59 23:59 23:59 Intake Total 3277 / 3277 2161 / 2161 1120 / 1120 Output Total 2099 / 2099 2350 / 2350 1125 / 1125 Balance 1177 / 1177 -189 / -189 -5 / -5 Weight (kg) 104 kg Objective General Appearance: positive No acute distress and Alert Eyes Bilateral: positive Normal inspection and PERRL ENT: positive ENT inspection nml and No signs of dehydration Neck: positive Nml inspection Respiratory: positive Chest non-tender, No respiratory distress and Breath sounds nml Cardiovascular: positive No murmur and Irregularly irregular Abdomen: positive Non-tender and No organomegaly Skin: positive Color nml Extremities: positive Non-tender and Full ROM Neurologic/Psychiatric: positive Oriented x3, CN's nml (2-12), Motor nml, Sensation nml and Mood/affect nml Lab Results 06/16/24 05:28 06/16/24 05:28 Other Labs: Lab Results x24hrs 06/16/24 Range/Units 05:28 WBC 8.8 (4.8-10.8) x10^3/uL RBC 4.29 L (4.70-6.10) 10^6/uL Hgb 13.2 L (14.0-18.0) g/dL Hct 40.3 L (42.0-52.0) % MCV 93.9 (80.0-94.0) fL MCH 30.8 (27.0-31.0) pg MCHC 32.8 (32.0-36.0) g/dL RDW 13.4 (12.0-15.0) % Plt Count 199 (130-450) 10^3/uL MPV 10.9 (7.4-11.4) fL Neut # (Auto) 5.4 (1.5-6.6) 10^3/uL Lymph # (Auto) 2.4 (1.5-3.5) 10^3/uL [place] # (Auto) 0.9 (0.0-1.0) 10^3/uL Eos # (Auto) 0.1 (0.0-0.7) 10^3/uL Baso # (Auto) 0.0 (0.0-0.1) 10^3/uL Absolute Nucleated RBC 0.00 x10^3/uL Nucleated RBC % 0.0 /100WBC Sodium 139 (135-145) mmol/L Potassium 3.5 (3.5-4.5) mmol/L Chloride 103 (101-111) mmol/L Carbon Dioxide 31 (21-32) mmol/L Anion Gap 5.0 L (6-13) BUN 19 (6-20) mg/dL Creatinine 0.9 (0.6-1.3) mg/dL Estimated GFR (MDRD) 82 L (>89) Glucose 98 (74-104) mg/dL Calcium 8.5 (8.5-10.3) mg/dL ABX Reporting Has patient been on IV antibiotics over the past 48 hours?: No Sepsis Event Note (H) Evaluation Current Stage of Sepsis: Ruled out (Meets clinical criteria below for sepsis, however clinical picture is more apprenticeship representative of SIRS - systemic inflammatory response. See Assessment/Plan) Possible source of Sepsis: positive GI tract/intra-abdominal Sepsis Criteria Sepsis Criteria: Recorded Heart Rate greater than 90 bpm Assessment/Plan Problem List (1) Small bowel obstruction: Impression: Patient reports feeling much improved and estimates 350cc out through colostomy bag, along with 400cc in suction canister from NG tube. He is hoping to have NG tube removed today. Defer to Dr. Edmond for timing of NG tube removal. (2) Atrial fibrillation with controlled ventricular response: Impression: Chronic condition managed with home medications. Tachycardia has improved with rehydration. (3) Leukocytosis: Impression: Resolved reactive leukocytosis.
--- NOTE | 2024-06-16 18:44 | Discharge Summary ---
Discharge Summary Admit Date: 06/14/24 Discharge Date: 06/16/24 Discharging Provider: Naman Mills NP Primary Care Provider: Sandro Medina Code Status: Attempt Resuscitation DIAGNOSES Admission Diagnoses: Small bowel obstruction Atrial fibrillation Leukocytosis Hypertension Discharge Diagnoses with Status of Each Condition: Small bowel obstructionresolving Atrial fibrillationchronic Leukocytosisresolved Hypertensionchronic HPI History of Present Illness: Mr. Bray is a 74-year-old male with history of perforated diverticulitis and colostomy placement in February 2024. He presents today with vomiting, abdominal distension, and abdominal discomfort that started about 8 pm last night. He reports 12 episodes of emesis since last night, described as non-bloody and bilious. He has colostomy in place since surgery about 3 months ago at [facility], this is his first complication. He denies bloody stool, hemetemesis, chest pain, shortness of breath. His last dose of metoprolol was taken last night, he believes he was able to keep the metoprolol down for more than 30 minutes before vomiting again. His home medications include low-dose Aspirin daily and 75mg Metoprolol twice daily. His chronic conditions include atrial fibrillation, for which he has had several prior ablations and is followed by Dr. Sen of cardiology at [facility] in [place]. His PCP is Dr. Medina at the [facility] in [place], [place]. He denies tobacco history, frequent alcohol consumption ("two beers a year"), or illicit drug use. He lives at home with his . He is a retired Orthopedic surgeon. His son Hector Bray is a psychiatrist in [place], [place]. CONSULTS | PROCEDURES Consultations: General surgery Procedures: Gastrografin challenge HOSPITAL COURSE Hospital Course: NG tube was placed for bowel rest. Gastrografin challenge was performed which showed passage of contrast at the 2-hour jose enrique. His NG tube was removed at that time but he continued to experience nausea and vomiting so it was replaced with large amount of output. Today, he tolerated NG tube being clamped with clear liquid diet throughout the day. He was given a regular meal for dinner with no nausea or vomiting. He is being discharged home with his with recommendation for follow-up with PCP and with Dr. Green at [facility], who is involved with his original surgery ALLERGIES Allergies Allergy/AdvReac Type Severity Reaction Status Date / Time No Known Drug Allergies Allergy Verified 06/14/24 08:38 MEDICATIONS Ambulatory Orders Medication Instructions Recorded Confirmed aspirin 81 mg tablet,delayed 81 mg PO DAILY 06/14/24 06/14/24 release lisinopril 5 mg tablet 5 mg PO DAILY 06/14/24 06/14/24 metoprolol tartrate 50 mg tablet 75 mg PO BID 06/14/24 06/14/24 (Lopressor) multivitamin 1 tab PO DAILY 06/14/24 06/14/24 omega-3 fatty acids-fish oil 360 1 cap PO DAILY 06/14/24 06/14/24 mg-1,200 mg capsule (Fish Oil) PHYSICAL EXAM AT DISCHARGE General Appearance: positive No acute distress and Alert Eyes Bilateral: positive Normal inspection and PERRL ENT: positive ENT inspection nml Neck: positive Nml inspection Respiratory: positive Chest non-tender and No respiratory distress Cardiovascular: positive Regular rate & rhythm and No murmur Peripheral Pulses: positive 2+ Abdomen: positive Non-tender and Other (Colostomy with output) Skin: positive Color nml Extremities: positive Non-tender Neurologic/Psychiatric: positive Oriented x3 LABS 06/16/24 05:28 06/16/24 05:28 SEPSIS Current Stage of Sepsis: Ruled out (Meets clinical criteria below for sepsis, however clinical picture is more inbound call center representative of SIRS - systemic inflammatory response. See Assessment/Plan) Possible source of Sepsis: GI tract/intra-abdominal Sepsis Criteria: Recorded Heart Rate greater than 90 bpm FOLLOW UP Follow Up: With PCP, general surgery TIME SPENT Time Spent in Discharge (Minutes): 35 Discharge Plan Discharge Patient Disposition: 01 Home, Self Care Condition: Serious Medically Cleared Date:: 06/16/24 Prescriptions: Continued multivitamin Tablet 1 tab PO DAILY omega-3 fatty acids-fish oil [Fish Oil] 360-1,200 mg capsule 1 cap PO DAILY aspirin 81 mg tablet,delayed release (DR/EC) 81 mg PO DAILY lisinopril 5 mg tablet 5 mg PO DAILY metoprolol tartrate [Lopressor] 50 mg tablet 75 mg PO BID Activity Restrictions: No Restrictions Diet: Regular Health Concerns: You presented to the hospital with small bowel obstruction which cleared after bowel rest and Gastrografin challenge. I would encourage you to continue reduced oral intake until your gut has had a chance to catch up. Please return to the ER if you have any recurring symptoms of nausea and vomiting or abdominal pain. I would like for you to remain as active as possible as this helps with gut motility. I would encourage you to follow-up with your PCP and with general surgery at [facility]. Print Language: Libyan Patient Instructions: Obstruction Sm Bowel Stand Alone Forms: PCP List Follow-up Care: SANDRO MEDINA MD [Primary Care Provider] - Naa Edmond MD [Provider Admit Priv/Credential] - (as needed) ARCENIO GREEN MD [Physician No Access] - (call to make appointment to discuss colostomy takedown)
[2024-06-16 18:57] VITALS: BP 129/82; TEMP 98.2; O2SAT 95
[2024-06-16] MEDS ORDERED: METOPROLOL TARTRATE 25 MG TABLET PO SCH (21:00)
[2024-06-17] MEDS ORDERED: MULTIVITAMIN TABLET PO SCH (08:00)
[2024-06-17] MEDS ORDERED: OMEGA-3 ACID ETHYL ESTERS 1 GM CAPSULE PO SCH (09:00)
[2024-06-17] MEDS ORDERED: ASPIRIN EC 81 MG TABLET PO SCH (09:00)
[2024-06-17] MEDS ORDERED: lisinopriL 5 MG TABLET PO SCH (09:00)
== END 2024-06-16 19:02 | disposition home or self-care (01) | DRG 389 ==
LOC: MS2 08:28 → ED 08:28 → MS2 12:03
PROVIDERS: ADMIT Family Medicine Sports Medicine; ATTEND Family Medicine Sports Medicine
DX: Z79.82 Long term (current) use of aspirin; R65.10 Systemic inflammatory response syndrome (SIRS) of non-infectious origin without acute organ dysfunction; I48.20 Chronic atrial fibrillation, unspecified; K56.609 Unspecified intestinal obstruction, unspecified as to partial versus complete obstruction; Z93.3 Colostomy status; I10 Essential (primary) hypertension; Z90.49 Acquired absence of other specified parts of digestive tract; Z87.891 Personal history of nicotine dependence